=== PATIENT | female | born 1990 | race Caucasian/White ===

== ENCOUNTER 2022-09-23 10:20 | Inpatient (IN) | payer OTHER ==
[2022-09-23 11:18] VITALS: BMI 32.4
[2022-09-23] MEDS ORDERED: PROMETHAZINE HCL 25 MG/1 ML VIAL IVPUSH ONE (11:22)
[2022-09-23] MEDS ORDERED: BUTORPHANOL TARTRATE 1 MG/ML VIAL IVPB ONE (11:22)
[2022-09-23] MEDS: DEXTROSE 5%-LACTATED RINGERS 1,000 ML IV SCH ×2 (11:40→18:19)
[2022-09-23 12:23] LABS: BASO % 0.4 % (0-2.0); HEMATOCRIT 40.3 % (32.4-45.2); HEMOGLOBIN 13.3 GM/dL (10.7-15.3); LYMPH % 15.8 % (8-40); MCH 30.9 pg (25.7-33.7); MEAN CELL VOLUME 93.5 fl (80-96); MEAN PLT VOLUME 9.3 fl (7.5-11.1); MONO % 7.5 % (3.8-10.2); NEUT % 75.3 % (42.8-82.8); PLATELET COUNT 206 10^3/uL (134-434); RBC 4.31 M/mm3 (3.60-5.2); RDW 13.5 % (11.6-15.6); WHITE BLOOD COUNT 14.2 K/mm3 (4.0-10.0)
[2022-09-23 12:33] LABS: INR 0.95 (0.83-1.09); PROTHROMBIN TIME (PATIENT) 10.9 SEC (9.7-13.0)
[2022-09-23 12:36] LABS: ACTIVATED PTT 26.5 SECONDS (25.2-36.5)
[2022-09-23 12:46] LABS: CALCIUM 8.9 mg/dL (8.5-10.1)
[2022-09-23 12:47] LABS: BLOOD UREA NITROGEN 13.4 mg/dL (7-18)
[2022-09-23 12:50] LABS: CREATININE 0.7 mg/dL (0.55-1.3)
[2022-09-23] MEDS ORDERED: OXYTOCIN 30 UNITS in 0.9% NS 30 UNIT/500 ML INFUS.BAG IVPB SCH (13:00)
[2022-09-23 13:40] LABS: HIV INTERPRETATION NEGATIVE (NEGATIVE)
[2022-09-23] MEDS ORDERED: OXYTOCIN 30 UNITS in 0.9% NS 30 UNIT/500 ML INFUS.BAG IVPB ONE (14:10)
[2022-09-23] MEDS ORDERED: BUTORPHANOL TARTRATE 2 MG/ML VIAL ONE (18:09)
[2022-09-23] MEDS ORDERED: PROMETHAZINE HCL 25 MG/1 ML VIAL ONE (18:09)
[2022-09-23] MEDS ORDERED: FENTANYL/BUPIVACAINE/NS/PF - PCEA - 50 ML DISP.SYRIN EP ONE (21:53)
[2022-09-23] MEDS ORDERED: NALOXONE HCL 0.4 MG/ML VIAL IVPUSH PRN (22:01)
[2022-09-23] MEDS ORDERED: BUPIVACAINE HCL/PF 0.25% (2.5MG/ML) 10 ML VIAL ONE (22:02)
[2022-09-23] MEDS ORDERED: ELECTROLYTE-148 SOLN 1,000 ML IV SCH (22:10)
[2022-09-23] MEDS ORDERED: FENTANYL/BUPIVACAINE/NS/PF - PCEA - 50 ML DISP.SYRIN EP SCH (22:15)
[2022-09-24] MEDS ORDERED: FENTANYL/BUPIVACAINE/NS/PF - PCEA - 50 ML DISP.SYRIN EP ONE (02:35)
[2022-09-24] MEDS ORDERED: BUPIVACAINE HCL/PF 0.25% (2.5MG/ML) 10 ML VIAL ONE (02:54)
[2022-09-24] MEDS ORDERED: LIDOCAINE HCL 1% PRESERVATIVE FREE - 30ML VIAL ONE (05:05)
[2022-09-24] MEDS ORDERED: OXYTOCIN 20 UNITS in 0.9% NS 20 UNIT/1,000 ML INFUS.BAG IV ONE (05:05)
[2022-09-24] MEDS ORDERED: ACETAMINOPHEN 325 MG TABLET (FP) PO PRN (08:05)
[2022-09-24] MEDS ORDERED: METHYLERGONOVINE MALEATE 0.2 MG/1 ML AMP IM PRN (08:05)
[2022-09-24] MEDS ORDERED: WITCH HAZEL 50% (TUCKS) 40 PAD/JAR PAD TP PRN (08:05)
[2022-09-24] MEDS ORDERED: BENZOCAINE 20% 57 GM BOTTLE TP PRN (08:05)
[2022-09-24] MEDS ORDERED: oxyCODONE HCL 5 MG TABLET PO PRN (08:05)
[2022-09-24] MEDS ORDERED: BENZOCAINE 28 GM HEMORRHOIDAL OINTMENT TP PRN (08:05)
[2022-09-24] MEDS ORDERED: BISACODYL 10 MG SUPP.RECT RC PRN (08:05)
[2022-09-24] MEDS ORDERED: OXYTOCIN 20 UNITS in 0.9% NS 20 UNIT/1,000 ML INFUS.BAG IV SCH (08:15)
[2022-09-24] MEDS ORDERED: IBUPROFEN 600 MG TABLET (FP) PO ONE (08:48)
[2022-09-24] MEDS ORDERED: PRENATAL VITAMINS W/ FOLIC ACID TABLET (FP) PO ONE (08:48)
[2022-09-24] MEDS: IBUPROFEN 600 MG TABLET (FP) PO PRN (09:00)
[2022-09-24] MEDS: PRENATAL VITAMINS W/ FOLIC ACID TABLET (FP) PO SCH (09:00)
[2022-09-25] MEDS: IBUPROFEN 600 MG TABLET (FP) PO PRN ×2 (08:45→19:18)
[2022-09-25 09:25] LABS: HEMATOCRIT 28.4 % (32.4-45.2); HEMOGLOBIN 9.5 GM/dL (10.7-15.3); MCH 31.5 pg (25.7-33.7); MCHC 33.6 g/dl (32.0-36.0); MEAN CELL VOLUME 93.9 fl (80-96); MEAN PLT VOLUME 8.8 fl (7.5-11.1); PLATELET COUNT 170 10^3/uL (134-434); RBC 3.02 M/mm3 (3.60-5.2); RDW 13.4 % (11.6-15.6); WHITE BLOOD COUNT 22.7 K/mm3 (4.0-10.0)
[2022-09-25 10:06] LABS: ANISOCYTOSIS 0; HELMET CELLS 0; HOWELL-JOLLY BODIES 0; MACROCYTOSIS 0; OVALOCYTE 0; ROULEAU 0; SICKELED CELLS 0; TARGET CELLS 0; TEAR DROP CELLS 0; TOXIC GRANULATION 0
[2022-09-25] MEDS: PRENATAL VITAMINS W/ FOLIC ACID TABLET (FP) PO SCH (10:31)
[2022-09-25 12:32] VITALS: RESP 16
[2022-09-25] MEDS ORDERED: SENNOSIDES/DOCUSATE COMBO (SENNA PLUS) TABLET (UD) PO PRN (22:00)
[2022-09-26] MEDS: IBUPROFEN 600 MG TABLET (FP) PO PRN ×2 (04:04→10:37)
[2022-09-26] MEDS ORDERED: DIPHTH,PERTUSS(ACELL),TET 0.5 ML DISP.SYRIN IM ONE (10:00)
[2022-09-26] MEDS ORDERED: FLU VACC QS2022-23(6MOS UP)/PF 60 MCG/0.5 ML SYRINGE IM ONE (10:00)
[2022-09-26] MEDS: PRENATAL VITAMINS W/ FOLIC ACID TABLET (FP) PO SCH (10:37)
[2022-09-26 11:26] VITALS: BP 119/71; PULSE 80; TEMP 98.2
== END 2022-09-26 12:25 | disposition home or self-care (01) | DRG 560 ==
LOC: JLDR 10:20 → J3W 09-24 09:15
PROVIDERS: ADMIT Obstetrics & Gynecology; ATTEND Obstetrics & Gynecology
PROC: 0W8NXZZ Division of Female Perineum, External Approach (ICD-10-PCS; principal; 2022-09-24)
PROC: 10E0XZZ Delivery of Products of Conception, External Approach (ICD-10-PCS; 2022-09-24)
DX: O48.0 Post-term pregnancy (principal); Z3A.40 40 weeks gestation of pregnancy; Z37.0 Single live birth
CPT/HCPCS: 36415; 59409; 80048; 85025; 85610; 85730; 86780; 86850; 86900; 86901; 87389; 90715; C9803-CS; G0008; Q2036; U0003; U0005